=== PATIENT | male | born 1995 | race African-American/Black ===

== ENCOUNTER 2017-08-09 15:40 | Emergency (ER) | payer SELFPAY ==
[~2017-08-09] VITALS: Ht 180.3 cm; Wt 79.4 kg
--- NOTE | 2017-08-09 16:02 | ED Neurological Problem ---
General Stated Complaint: BACK PAIN Source: patient, EMS Exam Limitations: no limitations History of Present Illness Date Seen by Provider: Aug 09, 2017 Time Seen by Provider: 15:56 Initial Comments 22-year-old black male presents after experiencing a popping sensation in his low back while running. The patient subsequently complains of feeling paralyzed in his right leg his right arm and the right side of his face. The patient did not sustain injury while running. Patient had a recent episode of mononucleosis. He is complaining primarily at this point of spasm of the muscles of the right low back. The patient's paralysis and paresthesias in the right face right arm and right leg spontaneously resolved. Allergies and Home Medications Allergies Coded Allergies: No Known Drug Allergies (Unverified , 08/09/17) Patient Home Medication List Home Medication List Reviewed: Yes Constitutional: No chills, No fever Eyes: Denies Blurred Vision Ears, Nose, Mouth, Throat: denies ear pain Respiratory: No cough Cardiovascular: No chest pain Gastrointestinal: No abdominal pain, No nausea, No vomiting Genitourinary: no symptoms reported Musculoskeletal: back pain Skin: no symptoms reported, No rash Psychiatric/Neurological: No Symptoms Reported Endocrine: No Symptoms Reported Hematologic/Lymphatic: No Symptoms Reported Past Alaqjag-[id number]-[id number] Hx Reviewed Nursing Assessment Reviewed/Agree w Nursing PMH: Yes Physical Exam Vital Signs Vital Signs - First Documented 08/09/17 15:40 Temp 97.5 Pulse 70 B/P (MAP) 123/68 (86) Pulse Ox 98 O2 Delivery Room Air Capillary Refill : General Appearance: WD/WN, mild distress HEENT: normal ENT inspection Neck: full range of motion Respiratory: lungs clear, normal breath sounds Cardiovascular: normal peripheral pulses, regular rate, rhythm Gastrointestinal: normal bowel sounds, non tender, soft Extremities: other (the patient is complaining of severe muscle weakness in his right leg less in his right arm and less in the right side of his face. 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, alert, oriented x 3 (grossly intact), motor weakness (patient has a aforementioned weakness to the right side of his body progressively from his face to his foot.) Crainal Nerves: normal hearing, normal speech, PERRL Motor/Sensory: weak motor strength RUE, weak motor strength RLE Skin: normal color, warm/dry Progress/Results/Core Measures Results/Orders Lab Results Laboratory Tests Test 08/09/17 16:20 Range/Units White Blood Count 11.5 H 4.3-11.0 10^3/uL Red Blood Count 4.69 4.35-5.85 10^6/uL Hemoglobin 15.4 13.3-17.7 G/DL Hematocrit 44 40-54 % Mean Corpuscular Volume 93 80-99 FL Mean Corpuscular Hemoglobin 33 25-34 PG Mean Corpuscular Hemoglobin Concent 35 32-36 G/DL Red Cell Distribution Width 11.9 10.0-14.5 % Platelet Count 237 130-400 10^3/uL Mean Platelet Volume 11.9 H 7.4-10.4 FL Neutrophils (%) (Auto) 85 H 42-75 % Lymphocytes (%) (Auto) 7 L 12-44 % Monocytes (%) (Auto) 8 0-12 % Eosinophils (%) (Auto) 0 0-10 % Basophils (%) (Auto) 0 0-10 % Neutrophils # (Auto) 9.9 H 1.8-7.8 X 10^3 Lymphocytes # (Auto) 0.8 L 1.0-4.0 X 10^3 Monocytes # (Auto) 0.9 0.0-1.0 X 10^3 Eosinophils # (Auto) 0.0 0.0-0.3 10^3/uL Basophils # (Auto) 0.0 0.0-0.1 10^3/uL Neutrophils % (Manual) 87 % Lymphocytes % (Manual) 8 % Monocytes % (Manual) 5 % Eosinophils % (Manual) 0 % Basophils % (Manual) 0 % Band Neutrophils 0 % Blood Morphology Comment NORMAL My Orders Orders - EZE CHANEY MD Iv 1000 Ml (Sodium Chloride 0.9%) (08/09/17 16:45) Diazepam Injection (Valium Injection) (08/09/17 16:45) Medications Given in ED Current Medications Medications Dose Ordered Sig/Amy Route Start Time Stop Time Status Last Admin Dose Admin Diazepam 5 mg ONCE ONCE IV 08/09/17 16:45 08/09/17 16:46 DC 08/09/17 16:47 5 MG Vital Signs/I&O Vital Sign - Last 12Hours 08/09/17 15:40 Temp 97.5 Pulse 70 B/P (MAP) 123/68 (86) Pulse Ox 98 O2 Delivery Room Air Progress Note : Time: 16:54 Progress Note The patient received an IV of normal saline with 5 mg of Valium IV. Shortly thereafter the patient was able to weight-bear Departure Impression Impression: Primary Impression: Low back pain Qualified Codes: M54.5 - Low back pain Disposition: 01 HOME, SELF-CARE Condition: Improved Departure-Patient Inst. Decision time for Depature: 16:55 Referrals: UNKNOWN (PCP) Primary Care Physician Patient Instructions: Low Back Pain (DC) Add. Discharge Instructions: Valium and ibuprofen for pain. Galileo wraps for support." Follow-up with her doctor on Saturday. Return if any problems or questions. EZE CHANEY MD Aug 09, 2017 16:02
[2017-08-09 16:29] LABS: BASOPHILS % (AUTO) 0 % (0-10); EOSINOPHILS % (AUTO) 0 % (0-10); HEMATOCRIT 44 % (40-54); HEMOGLOBIN 15.4 G/DL (13.3-17.7); LYMPHOCYTES # (AUTO) 0.8 X 10^3 (1.0-4.0); LYMPHOCYTES % (AUTO) 7 % (12-44); MEAN CORPUSCULAR HEMOGLOBIN 33 PG (25-34); MEAN CORPUSCULAR HGB CONC 35 G/DL (32-36); MEAN CORPUSCULAR VOLUME 93 FL (80-99); MEAN PLATELET VOLUME 11.9 FL (7.4-10.4); MONOCYTES # (AUTO) 0.9 X 10^3 (0.0-1.0); MONOCYTES % (AUTO) 8 % (0-12); NEUTROPHILS # (AUTO) 9.9 X 10^3 (1.8-7.8); NEUTROPHILS % (AUTO) 85 % (42-75); PLATELET COUNT 237 10^3/uL (130-400); RED BLOOD COUNT 4.69 10^6/uL (4.35-5.85); RED CELL DISTRIBUTION WIDTH 11.9 % (10.0-14.5); WHITE BLOOD COUNT 11.5 10^3/uL (4.3-11.0)
[2017-08-09 16:43] LABS: BAND NEUTROPHILS 0 %; BASOPHILS % (MANUAL) 0 %; EOSINOPHILS % (MANUAL) 0 %; LYMPHOCYTES % (MANUAL) 8 %; MONOCYTES % (MANUAL) 5 %; NEUTROPHILS % (MANUAL) 87 %; RBC MORPH NORMAL
[2017-08-09] MEDS ORDERED: NS IV 1000 ML 1,000 ML IV SCH (16:45)
[2017-08-09] MEDS ORDERED: DIAZEPAM INJ 10 MG/2 ML (VALIUM) SYR IV ONE (16:45)
[2017-08-09 16:54] LABS: ALBUMIN 4.8 GM/DL (3.2-4.5); BILIRUBIN,TOTAL 0.4 MG/DL (0.1-1.0); CALCIUM 10.1 MG/DL (8.5-10.1); CREATININE SERUM 1.53 MG/DL (0.60-1.30); POTASSIUM 4.9 MMOL/L (3.6-5.0)
[2017-08-09 17:02] VITALS: BP 123/68
== END 2017-08-09 17:04 | disposition home or self-care (01) ==
LOC: ER 15:41
DX: M54.5 Low back pain (principal)
CPT/HCPCS: 36415; 80053; 85007; 85027; 96374